=== PATIENT | male | born 1940 | race Caucasian/White ===

== ENCOUNTER 2018-07-07 16:37 | Inpatient (IN) | payer MEDICARE, BC ==
[2018-07-07 21:26] LABS: ADD MAN DIFF? NO
[2018-07-07] MEDS: SODIUM CHLORIDE 0.9% 1L BAG IV* (21:29)
[2018-07-07] MEDS: CEFEPIME 2GM/50 ML (PMX) 50 ML IVPB (21:29)
[2018-07-07] MEDS: ACETAMINOPHEN 325 MG TAB PO (21:29)
[2018-07-07 21:32] LABS: WHITE BLOOD COUNT 9.3 10^3/ul (4.8-10.8)
[2018-07-07 21:32] LABS: BASOPHILS % 0.3 % (0.0-2.0); HEMATOCRIT 45.3 % (42.0-52.0); HEMOGLOBIN 15.1 g/dl (14.0-18.0); MEAN CORPUSCULAR HGB CONC 33.3 g/dl (32.0-37.0); MEAN CORPUSCULAR VOLUME 83.9 fl (82.0-101.0); MEAN PLATELET VOLUME 9.2 fl (7.4-10.4); MONOCYTE # 0.8 10^3/ul (0.3-0.9); MONOCYTES % 9.1 % (0.0-11.0); NEUTROPHIL # 7.3 10^3/ul (1.6-7.5); PLATELET COUNT 236 10^3/UL (140-415); RED CELL DISTRIBUTION WIDTH 13.1 % (11.5-14.5)
[2018-07-07 21:48] LABS: ALANINE AMINOTRANSFERASE 33 IU/L (13-69); ALBUMIN 4.4 g/dl (3.3-4.9); ALBUMIN/GLOBULIN RATIO 1.57; ALKALINE PHOSPHATASE 82 IU/L (42-121); ANION GAP 14 (5-13); ASPARTATE AMINO TRANSFERASE 25 IU/L (15-46); BILIRUBIN,INDIRECT 0.4 mg/dl (0-1.1); BILIRUBIN,TOTAL 0.4 mg/dl (0.2-1.3); BLOOD UREA NITROGEN 25 mg/dl (7-20); CALCIUM 9.8 mg/dl (8.4-10.2); CARBON DIOXIDE 24 mmol/L (21-31); CHLORIDE 101 mmol/L (97-110); GLUCOSE 302 mg/dl (70-220); POTASSIUM 4.2 mmol/L (3.5-5.1); SODIUM 139 mmol/L (135-144); TOTAL PROTEIN 7.2 g/dl (6.1-8.1)
[2018-07-07 21:52] LABS: INR 1.15; PROTIME 14.8 Sec (11.9-14.9); PT RATIO 1.2
[2018-07-07 21:53] LABS: PARTIAL THROMBOPLASTIN TIME 29.9 Sec (23.0-35.0)
[2018-07-07 22:00] LABS: TROPONIN-I 0.022 ng/ml (0.000-0.120)
[2018-07-07 22:11] LABS: ADD UMIC NO; UR ASCORBIC ACID 20 mg/dL (NEGATIVE); UR BILIRUBIN (Dip) NEGATIVE (NEGATIVE); UR BLOOD (Dip) NEGATIVE (NEGATIVE); UR CLARITY CLEAR (CLEAR); UR COLOR YELLOW (YELLOW); UR GLUCOSE (Dip) 3+ mg/dL (NEGATIVE); UR KETONES (Dip) 1+ mg/dL (NEGATIVE); UR LEUKOCYTE ESTERASE (Dip) NEGATIVE Leu/ul (NEGATIVE); UR NITRITE (Dip) NEGATIVE (NEGATIVE); UR SPECIFIC GRAVITY (Dip) 1.025 (1.003-1.030); UR TOTAL PROTEIN (Dip) NEGATIVE (NEGATIVE); UR UROBILINOGEN (Dip) 1+ mg/dL (NEGATIVE)
[2018-07-07] MEDS: VANCOMYCIN 1 GM (PMX) 250 ML IVPB (22:54)
[2018-07-07] MEDS ORDERED: ACETAMINOPHEN 325 MG TAB PO ×2 (23:00)
[2018-07-07] MEDS ORDERED: ONDANSETRON 4 MG INJ IV ×2 (23:00)
[2018-07-08] MEDS ORDERED: DOCUSATE SODIUM 100 MG CAP PO (00:30)
[2018-07-08] MEDS ORDERED: ACETAMINOPHEN 325 MG TAB PO (01:00)
[2018-07-08] MEDS: SOD CHLORIDE 0.9% 1,000 ML IV ×3 (01:50→17:31)
[2018-07-08] MEDS: INSULIN ASPART [NOVOLOG] 3 ML PEN SC ×3 (02:00→20:59)
[2018-07-08] MEDS: ACCU-CHEK XX (02:00)
[2018-07-08] MEDS: QUETIAPINE 100 MG TAB PO ×3 (02:04→21:03)
[2018-07-08] MEDS: METOPROLOL 25 MG TAB PO ×3 (02:06→21:00)
[2018-07-08] MEDS ORDERED: GLUCOSE GEL 15 GRAM TUBE PO ×2 (02:30)
[2018-07-08] MEDS ORDERED: GLUCAGON 1 MG INJ IM (02:30)
[2018-07-08] MEDS ORDERED: GLUCOSE GEL 15 GRAM TUBE BUCCAL (02:30)
[2018-07-08] MEDS ORDERED: DEXTROSE 50% 50 ML SYRINGE IV ×2 (02:30)
[2018-07-08 05:52] LABS: ADD MAN DIFF? NO
[2018-07-08 06:03] LABS: WHITE BLOOD COUNT 7.3 10^3/ul (4.8-10.8)
[2018-07-08 06:03] LABS: BASOPHILS % 0.3 % (0.0-2.0); EOSINOPHILS % 0.1 % (0.0-7.0); HEMATOCRIT 38.9 % (42.0-52.0); LYMPHOCYTES # 1.3 10^3/ul (0.8-2.9); LYMPHOCYTES % 17.5 % (15.0-51.0); MEAN CORPUSCULAR HGB CONC 33.4 g/dl (32.0-37.0); MEAN CORPUSCULAR VOLUME 83.8 fl (82.0-101.0); MEAN PLATELET VOLUME 9.3 fl (7.4-10.4); MONOCYTE # 0.9 10^3/ul (0.3-0.9); MONOCYTES % 12.1 % (0.0-11.0); NEUTROPHILS % 69.4 % (39.0-77.0); PLATELET COUNT 207 10^3/UL (140-415); RED BLOOD COUNT 4.64 10^6/ul (4.70-6.10); RED CELL DISTRIBUTION WIDTH 13.2 % (11.5-14.5)
[2018-07-08 06:40] LABS: LACTIC ACID 0.9 mmol/L (0.5-2.0)
[2018-07-08 06:40] LABS: ANION GAP 9 (5-13)
[2018-07-08 06:42] LABS: BLOOD UREA NITROGEN 20 mg/dl (7-20); CALCIUM 8.7 mg/dl (8.4-10.2); CARBON DIOXIDE 24 mmol/L (21-31); CHLORIDE 108 mmol/L (97-110); CREATININE 0.78 mg/dl (0.61-1.24); GLUCOSE 128 mg/dl (70-220); MAGNESIUM 1.9 mg/dl (1.7-2.5); SODIUM 141 mmol/L (135-144)
[2018-07-08] MEDS: RISPERIDONE 1 MG TAB PO (08:23)
[2018-07-08] MEDS: BENZTROPINE 1 MG TAB PO (08:23)
[2018-07-08] MEDS: FINASTERIDE 5 MG TAB PO (08:23)
[2018-07-08] MEDS: glipiZIDE (XL) 5 MG TAB PO ×2 (08:23→17:35)
[2018-07-08 08:46] LABS: LACTIC ACID 1.2 mmol/L (0.5-2.0)
[2018-07-08] MEDS: CEFEPIME 2GM/50 ML (PMX) 50 ML IVPB ×2 (09:30→21:17)
[2018-07-08] MEDS: MAGNESIUM SULFATE 2 GM/50 ML 50 ML IVPB (11:20)
[2018-07-08] MEDS: SOD CHLORIDE 0.9% 500 ML IV (14:38)
[2018-07-08] MEDS: TAMSULOSIN (SR) 0.4 MG CAP PO (21:00)
[2018-07-09] MEDS: ACCU-CHEK XX (01:56)
[2018-07-09] MEDS: SOD CHLORIDE 0.9% 1,000 ML IV ×3 (03:40→17:00)
[2018-07-09 06:19] LABS: ADD MAN DIFF? NO
[2018-07-09 06:30] LABS: WHITE BLOOD COUNT 9.3 10^3/ul (4.8-10.8)
[2018-07-09 06:30] LABS: BASOPHILS % 0.3 % (0.0-2.0); HEMATOCRIT 40.3 % (42.0-52.0); HEMOGLOBIN 13.8 g/dl (14.0-18.0); LYMPHOCYTES # 1.7 10^3/ul (0.8-2.9); LYMPHOCYTES % 18.3 % (15.0-51.0); MEAN CORPUSCULAR HEMOGLOBIN 28.8 pg (29.0-33.0); MEAN CORPUSCULAR HGB CONC 34.2 g/dl (32.0-37.0); MEAN PLATELET VOLUME 9.4 fl (7.4-10.4); MONOCYTE # 0.7 10^3/ul (0.3-0.9); MONOCYTES % 7.5 % (0.0-11.0); NEUTROPHIL # 6.9 10^3/ul (1.6-7.5); NEUTROPHILS % 73.7 % (39.0-77.0); PLATELET COUNT 203 10^3/UL (140-415); RED CELL DISTRIBUTION WIDTH 13.1 % (11.5-14.5)
[2018-07-09 07:35] LABS: ANION GAP 7 (5-13); BLOOD UREA NITROGEN 14 mg/dl (7-20); CALCIUM 8.3 mg/dl (8.4-10.2); CARBON DIOXIDE 24 mmol/L (21-31); CHLORIDE 105 mmol/L (97-110); CREATININE 0.75 mg/dl (0.61-1.24); GLUCOSE 110 mg/dl (70-220); POTASSIUM 3.8 mmol/L (3.5-5.1); SODIUM 136 mmol/L (135-144)
[2018-07-09] MEDS: glipiZIDE (XL) 5 MG TAB PO ×2 (08:09→18:22)
[2018-07-09] MEDS: INSULIN ASPART [NOVOLOG] 3 ML PEN SC ×2 (08:12→20:55)
[2018-07-09] MEDS: CEFEPIME 2GM/50 ML (PMX) 50 ML IVPB ×2 (10:23→20:53)
[2018-07-09] MEDS: METOPROLOL 25 MG TAB PO ×2 (10:26→20:54)
[2018-07-09] MEDS: RISPERIDONE 1 MG TAB PO (10:26)
[2018-07-09] MEDS: FINASTERIDE 5 MG TAB PO (10:26)
[2018-07-09] MEDS: BENZTROPINE 1 MG TAB PO (10:26)
[2018-07-09] MEDS: QUETIAPINE 100 MG TAB PO ×2 (10:26→20:53)
[2018-07-09] MEDS: TAMSULOSIN (SR) 0.4 MG CAP PO (20:53)
[2018-07-10] MEDS: ACCU-CHEK XX (01:52)
[2018-07-10] MEDS: ENOXAPARIN 40 MG/0.4 ML SYG SC (08:30)
[2018-07-10] MEDS: CYCLOSPORINE 0.05% OPH DROPERETTE BOTH EYES (08:31)
[2018-07-10] MEDS: QUETIAPINE 100 MG TAB PO ×2 (08:32→21:13)
[2018-07-10] MEDS: glipiZIDE (XL) 5 MG TAB PO ×2 (08:32→17:40)
[2018-07-10] MEDS: BENZTROPINE 1 MG TAB PO (08:33)
[2018-07-10] MEDS: FINASTERIDE 5 MG TAB PO (08:33)
[2018-07-10] MEDS: METOPROLOL 25 MG TAB PO ×2 (08:33→21:12)
[2018-07-10] MEDS: RISPERIDONE 1 MG TAB PO (08:33)
[2018-07-10] MEDS: CEFEPIME 2GM/50 ML (PMX) 50 ML IVPB ×2 (08:36→21:12)
[2018-07-10] MEDS: INSULIN ASPART [NOVOLOG] 3 ML PEN SC ×2 (08:46→21:00)
[2018-07-10] MEDS: TAMSULOSIN (SR) 0.4 MG CAP PO (21:13)
[2018-07-10] MEDS: SOD CHLORIDE 0.9% 100 ML (21:59)
[2018-07-10] MEDS: IOHEXOL 300MG/ML 150 ML BTL (22:00)
[2018-07-10] MEDS: LEVALBUTEROL (NEB) 0.63 MG/3 ML AMP HHN (22:47)
[2018-07-11] MEDS ORDERED: LEVALBUTEROL (NEB) 0.63 MG/3 ML AMP HHN
[2018-07-11] MEDS: ACCU-CHEK XX (02:00)
[2018-07-11 05:38] LABS: ADD MAN DIFF? NO
[2018-07-11 05:48] LABS: WHITE BLOOD COUNT 5.9 10^3/ul (4.8-10.8)
[2018-07-11 05:48] LABS: BASOPHILS % 0.3 % (0.0-2.0); EOSINOPHILS % 0.5 % (0.0-7.0); HEMATOCRIT 41.5 % (42.0-52.0); HEMOGLOBIN 13.8 g/dl (14.0-18.0); LYMPHOCYTES # 1.6 10^3/ul (0.8-2.9); LYMPHOCYTES % 27.1 % (15.0-51.0); MEAN CORPUSCULAR HEMOGLOBIN 27.6 pg (29.0-33.0); MEAN CORPUSCULAR HGB CONC 33.3 g/dl (32.0-37.0); MEAN PLATELET VOLUME 9.4 fl (7.4-10.4); MONOCYTE # 0.6 10^3/ul (0.3-0.9); MONOCYTES % 10.9 % (0.0-11.0); NEUTROPHIL # 3.6 10^3/ul (1.6-7.5); NEUTROPHILS % 60.7 % (39.0-77.0); PLATELET COUNT 241 10^3/UL (140-415)
[2018-07-11 07:39] LABS: ALANINE AMINOTRANSFERASE 22 IU/L (13-69); ALBUMIN 3.6 g/dl (3.3-4.9); ALBUMIN/GLOBULIN RATIO 1.24; ALKALINE PHOSPHATASE 63 IU/L (42-121); ANION GAP 10 (5-13); ASPARTATE AMINO TRANSFERASE 40 IU/L (15-46); BILIRUBIN,INDIRECT 0.4 mg/dl (0-1.1); BILIRUBIN,TOTAL 0.4 mg/dl (0.2-1.3); BLOOD UREA NITROGEN 17 mg/dl (7-20); CARBON DIOXIDE 25 mmol/L (21-31); CHLORIDE 104 mmol/L (97-110); CREATININE 0.76 mg/dl (0.61-1.24); GLUCOSE 107 mg/dl (70-220); SODIUM 139 mmol/L (135-144); TOTAL PROTEIN 6.5 g/dl (6.1-8.1)
[2018-07-11 07:40] LABS: ERYTHROCYTE SEDIMENTATION RATE 20 mm/Hr (0-20)
[2018-07-11] MEDS: LEVALBUTEROL (NEB) 0.63 MG/3 ML AMP HHN ×2 (08:00→16:00)
[2018-07-11] MEDS: glipiZIDE (XL) 5 MG TAB PO ×2 (08:22→18:01)
[2018-07-11] MEDS: INSULIN ASPART [NOVOLOG] 3 ML PEN SC ×2 (08:22→21:04)
[2018-07-11] MEDS: RISPERIDONE 1 MG TAB PO (09:13)
[2018-07-11] MEDS: BENZTROPINE 1 MG TAB PO (09:13)
[2018-07-11] MEDS: CEFEPIME 2GM/50 ML (PMX) 50 ML IVPB ×2 (09:13→20:56)
[2018-07-11] MEDS: METOPROLOL 25 MG TAB PO ×2 (09:15→20:58)
[2018-07-11] MEDS: FINASTERIDE 5 MG TAB PO (09:15)
[2018-07-11] MEDS: QUETIAPINE 100 MG TAB PO ×2 (09:15→20:56)
[2018-07-11] MEDS: ENOXAPARIN 40 MG/0.4 ML SYG SC (09:16)
[2018-07-11] MEDS: CYCLOSPORINE 0.05% OPH DROPERETTE BOTH EYES (11:05)
[2018-07-11] MEDS: TAMSULOSIN (SR) 0.4 MG CAP PO (20:56)
[2018-07-12] MEDS: LEVALBUTEROL (NEB) 0.63 MG/3 ML AMP HHN ×4 (00:23→23:58)
[2018-07-12] MEDS: ACCU-CHEK XX (02:00)
[2018-07-12 06:06] LABS: ADD MAN DIFF? NO
[2018-07-12 06:13] LABS: WHITE BLOOD COUNT 7.9 10^3/ul (4.8-10.8)
[2018-07-12 06:13] LABS: BASOPHILS % 0.1 % (0.0-2.0); EOSINOPHILS % 0.1 % (0.0-7.0); HEMATOCRIT 41.3 % (42.0-52.0); HEMOGLOBIN 13.9 g/dl (14.0-18.0); LYMPHOCYTES % 25.7 % (15.0-51.0); MEAN CORPUSCULAR HEMOGLOBIN 27.3 pg (29.0-33.0); MEAN CORPUSCULAR HGB CONC 33.7 g/dl (32.0-37.0); MEAN CORPUSCULAR VOLUME 81.1 fl (82.0-101.0); MEAN PLATELET VOLUME 8.9 fl (7.4-10.4); MONOCYTE # 0.8 10^3/ul (0.3-0.9); MONOCYTES % 9.8 % (0.0-11.0); NEUTROPHIL # 5.1 10^3/ul (1.6-7.5); NEUTROPHILS % 64.2 % (39.0-77.0); PLATELET COUNT 230 10^3/UL (140-415); RED BLOOD COUNT 5.09 10^6/ul (4.70-6.10)
[2018-07-12 06:43] LABS: ANION GAP 10 (5-13); BLOOD UREA NITROGEN 16 mg/dl (7-20); CALCIUM 8.9 mg/dl (8.4-10.2); CARBON DIOXIDE 25 mmol/L (21-31); CHLORIDE 102 mmol/L (97-110); CREATININE 0.72 mg/dl (0.61-1.24); GLUCOSE 135 mg/dl (70-220); POTASSIUM 3.7 mmol/L (3.5-5.1); SODIUM 137 mmol/L (135-144)
[2018-07-12] MEDS: BENZTROPINE 1 MG TAB PO (08:22)
[2018-07-12] MEDS: RISPERIDONE 1 MG TAB PO (08:22)
[2018-07-12] MEDS: QUETIAPINE 100 MG TAB PO ×2 (08:22→21:52)
[2018-07-12] MEDS: FINASTERIDE 5 MG TAB PO (08:22)
[2018-07-12] MEDS: CEFEPIME 2GM/50 ML (PMX) 50 ML IVPB ×2 (08:23→21:52)
[2018-07-12] MEDS: ENOXAPARIN 40 MG/0.4 ML SYG SC (08:24)
[2018-07-12] MEDS: METOPROLOL 25 MG TAB PO ×2 (08:25→21:53)
[2018-07-12] MEDS: CYCLOSPORINE 0.05% OPH DROPERETTE BOTH EYES (08:29)
[2018-07-12] MEDS: INSULIN ASPART [NOVOLOG] 3 ML PEN SC ×2 (08:29→21:00)
[2018-07-12] MEDS: glipiZIDE (XL) 5 MG TAB PO ×2 (08:29→18:06)
[2018-07-12] MEDS: TAMSULOSIN (SR) 0.4 MG CAP PO (21:52)
[2018-07-13] MEDS: ACCU-CHEK XX (02:00)
[2018-07-13] MEDS: POLYETHYLENE GLYCOL 17 GM PACKET PO (06:12)
[2018-07-13 06:17] LABS: WHITE BLOOD COUNT 6.6 10^3/ul (4.8-10.8)
[2018-07-13 06:17] LABS: HEMATOCRIT 40.7 % (42.0-52.0); HEMOGLOBIN 13.7 g/dl (14.0-18.0); MEAN CORPUSCULAR HEMOGLOBIN 27.6 pg (29.0-33.0); MEAN CORPUSCULAR HGB CONC 33.7 g/dl (32.0-37.0); MEAN CORPUSCULAR VOLUME 81.9 fl (82.0-101.0); POSITIVE DIFF @See below; RED BLOOD COUNT 4.97 10^6/ul (4.70-6.10); RED CELL DISTRIBUTION WIDTH 13.1 % (11.5-14.5)
[2018-07-13 06:23] LABS: ADD MAN DIFF? YES; MEAN PLATELET VOLUME 10.8 fl (7.4-10.4); PLATELET COUNT 169 10^3/UL (140-415)
[2018-07-13 06:42] LABS: ALANINE AMINOTRANSFERASE 22 IU/L (13-69); ALBUMIN 3.5 g/dl (3.3-4.9); ALBUMIN/GLOBULIN RATIO 1.06; ALKALINE PHOSPHATASE 51 IU/L (42-121); ANION GAP 8 (5-13); ASPARTATE AMINO TRANSFERASE 50 IU/L (15-46); BILIRUBIN,INDIRECT 0.3 mg/dl (0-1.1); BILIRUBIN,TOTAL 0.3 mg/dl (0.2-1.3); BLOOD UREA NITROGEN 20 mg/dl (7-20); CALCIUM 8.5 mg/dl (8.4-10.2); CARBON DIOXIDE 24 mmol/L (21-31); CHLORIDE 105 mmol/L (97-110); CREATININE 0.79 mg/dl (0.61-1.24); GLUCOSE 95 mg/dl (70-220); MAGNESIUM 2.2 mg/dl (1.7-2.5); POTASSIUM 4.5 mmol/L (3.5-5.1); SODIUM 137 mmol/L (135-144); TOTAL PROTEIN 6.8 g/dl (6.1-8.1)
[2018-07-13] MEDS: LEVALBUTEROL (NEB) 0.63 MG/3 ML AMP HHN ×3 (09:14→23:49)
[2018-07-13] MEDS: FINASTERIDE 5 MG TAB PO (09:19)
[2018-07-13] MEDS: RISPERIDONE 1 MG TAB PO (09:20)
[2018-07-13] MEDS: glipiZIDE (XL) 5 MG TAB PO ×2 (09:20→17:25)
[2018-07-13] MEDS: QUETIAPINE 100 MG TAB PO ×2 (09:20→20:47)
[2018-07-13] MEDS: BENZTROPINE 1 MG TAB PO (09:21)
[2018-07-13] MEDS: CYCLOSPORINE 0.05% OPH DROPERETTE BOTH EYES (09:23)
[2018-07-13] MEDS: METOPROLOL 25 MG TAB PO ×2 (09:23→20:48)
[2018-07-13] MEDS: ENOXAPARIN 40 MG/0.4 ML SYG SC (09:25)
[2018-07-13] MEDS: CEFEPIME 2GM/50 ML (PMX) 50 ML IVPB ×2 (09:25→21:00)
[2018-07-13] MEDS: INSULIN ASPART [NOVOLOG] 3 ML PEN SC ×2 (09:26→20:47)
[2018-07-13 16:46] LABS: AADO2 Arterial 85.8 mmHg (7.0-24.0); Allen Test ACCEPTAB; Arterial Base Excess 2.7 mmol/L (-3.0-3); Arterial Blood Gas Oxygen Sat 97.2 mmHG (95.0-100.0); Arterial COHb 0.3 % (0.0-3.0); Arterial Fraction of Oxyhgb 96.6 % (93.0-99.0); Arterial HCO3 25.6 mmol/L (22.0-26.0); Arterial MetHb 0.3 % (0.0-1.5); MODE NASAL CANNULA; Site Left Radial
[2018-07-13] MEDS: TAMSULOSIN (SR) 0.4 MG CAP PO (20:47)
[2018-07-14] MEDS: ACCU-CHEK XX (01:54)
[2018-07-14 06:18] LABS: ADD MAN DIFF? NO
[2018-07-14 06:31] LABS: BASOPHILS % 0.3 % (0.0-2.0); EOSINOPHILS # 0.1 10^3/ul (0.0-0.5); EOSINOPHILS % 0.9 % (0.0-7.0); HEMATOCRIT 39.6 % (42.0-52.0); HEMOGLOBIN 13.2 g/dl (14.0-18.0); LYMPHOCYTES # 1.9 10^3/ul (0.8-2.9); LYMPHOCYTES % 28.6 % (15.0-51.0); MEAN CORPUSCULAR HEMOGLOBIN 27.7 pg (29.0-33.0); MEAN CORPUSCULAR HGB CONC 33.3 g/dl (32.0-37.0); MEAN PLATELET VOLUME 9.2 fl (7.4-10.4); MONOCYTE # 0.7 10^3/ul (0.3-0.9); MONOCYTES % 11.1 % (0.0-11.0); NEUTROPHIL # 3.8 10^3/ul (1.6-7.5); NEUTROPHILS % 57.9 % (39.0-77.0); PLATELET COUNT 275 10^3/UL (140-415); RED BLOOD COUNT 4.77 10^6/ul (4.70-6.10); RED CELL DISTRIBUTION WIDTH 12.9 % (11.5-14.5)
[2018-07-14 06:31] LABS: WHITE BLOOD COUNT 6.5 10^3/ul (4.8-10.8)
[2018-07-14 06:51] LABS: ALANINE AMINOTRANSFERASE 30 IU/L (13-69); ALBUMIN 3.4 g/dl (3.3-4.9); ALBUMIN/GLOBULIN RATIO 1.06; ALKALINE PHOSPHATASE 62 IU/L (42-121); ANION GAP 11 (5-13); ASPARTATE AMINO TRANSFERASE 38 IU/L (15-46); BILIRUBIN,INDIRECT 0.3 mg/dl (0-1.1); BILIRUBIN,TOTAL 0.3 mg/dl (0.2-1.3); BLOOD UREA NITROGEN 19 mg/dl (7-20); CALCIUM 8.9 mg/dl (8.4-10.2); CARBON DIOXIDE 25 mmol/L (21-31); CHLORIDE 103 mmol/L (97-110); CREATININE 0.66 mg/dl (0.61-1.24); GLUCOSE 114 mg/dl (70-220); MAGNESIUM 2.1 mg/dl (1.7-2.5); POTASSIUM 3.9 mmol/L (3.5-5.1); SODIUM 139 mmol/L (135-144); TOTAL PROTEIN 6.6 g/dl (6.1-8.1)
[2018-07-14 07:29] LABS: GAMMA GLUTAMYL TRANSPEPTIDASE 16 IU/L (0-50)
[2018-07-14] MEDS: ENOXAPARIN 40 MG/0.4 ML SYG SC (08:44)
[2018-07-14] MEDS: INSULIN ASPART [NOVOLOG] 3 ML PEN SC ×2 (08:45→20:57)
[2018-07-14] MEDS: FINASTERIDE 5 MG TAB PO (08:45)
[2018-07-14] MEDS: CYCLOSPORINE 0.05% OPH DROPERETTE BOTH EYES (08:45)
[2018-07-14] MEDS: glipiZIDE (XL) 5 MG TAB PO ×2 (08:45→17:15)
[2018-07-14] MEDS: METOPROLOL 25 MG TAB PO ×2 (08:46→20:58)
[2018-07-14] MEDS: QUETIAPINE 100 MG TAB PO ×2 (08:46→20:58)
[2018-07-14] MEDS: RISPERIDONE 1 MG TAB PO ×2 (08:46→20:58)
[2018-07-14] MEDS: CEFEPIME 2GM/50 ML (PMX) 50 ML IVPB ×2 (08:47→20:57)
[2018-07-14] MEDS: LEVALBUTEROL (NEB) 0.63 MG/3 ML AMP HHN ×2 (09:51→15:54)
[2018-07-14] MEDS: TAMSULOSIN (SR) 0.4 MG CAP PO (20:58)
[2018-07-15] MEDS: LEVALBUTEROL (NEB) 0.63 MG/3 ML AMP HHN ×4 (00:46→23:10)
[2018-07-15] MEDS: ACCU-CHEK XX (01:34)
[2018-07-15 05:51] LABS: ADD MAN DIFF? NO
[2018-07-15 05:55] LABS: BASOPHILS % 0.6 % (0.0-2.0); EOSINOPHILS # 0.1 10^3/ul (0.0-0.5); HEMATOCRIT 40.9 % (42.0-52.0); HEMOGLOBIN 13.6 g/dl (14.0-18.0); LYMPHOCYTES # 1.9 10^3/ul (0.8-2.9); LYMPHOCYTES % 28.2 % (15.0-51.0); MEAN CORPUSCULAR HEMOGLOBIN 27.5 pg (29.0-33.0); MEAN CORPUSCULAR HGB CONC 33.3 g/dl (32.0-37.0); MEAN CORPUSCULAR VOLUME 82.8 fl (82.0-101.0); MONOCYTE # 0.7 10^3/ul (0.3-0.9); MONOCYTES % 10.1 % (0.0-11.0); NEUTROPHIL # 3.8 10^3/ul (1.6-7.5); PLATELET COUNT 303 10^3/UL (140-415); RED BLOOD COUNT 4.94 10^6/ul (4.70-6.10)
[2018-07-15 05:55] LABS: WHITE BLOOD COUNT 6.6 10^3/ul (4.8-10.8)
[2018-07-15 06:25] LABS: ANION GAP 8 (5-13); BLOOD UREA NITROGEN 21 mg/dl (7-20); CALCIUM 9.3 mg/dl (8.4-10.2); CARBON DIOXIDE 26 mmol/L (21-31); CHLORIDE 108 mmol/L (97-110); GLUCOSE 95 mg/dl (70-220); MAGNESIUM 2.3 mg/dl (1.7-2.5); POTASSIUM 4.2 mmol/L (3.5-5.1); SODIUM 142 mmol/L (135-144)
[2018-07-15] MEDS: INSULIN ASPART [NOVOLOG] 3 ML PEN SC ×2 (08:09→20:44)
[2018-07-15] MEDS: glipiZIDE (XL) 5 MG TAB PO ×2 (08:10→17:37)
[2018-07-15] MEDS: CYCLOSPORINE 0.05% OPH DROPERETTE BOTH EYES (09:09)
[2018-07-15] MEDS: METOPROLOL 25 MG TAB PO ×2 (09:09→20:43)
[2018-07-15] MEDS: CEFEPIME 2GM/50 ML (PMX) 50 ML IVPB ×2 (09:09→21:14)
[2018-07-15] MEDS: FINASTERIDE 5 MG TAB PO (09:10)
[2018-07-15] MEDS: ENOXAPARIN 40 MG/0.4 ML SYG SC (09:10)
[2018-07-15] MEDS: TAMSULOSIN (SR) 0.4 MG CAP PO (20:42)
[2018-07-15] MEDS: QUETIAPINE 100 MG TAB PO (20:42)
[2018-07-15] MEDS: RISPERIDONE 1 MG TAB PO (20:43)
[2018-07-16] MEDS: ACCU-CHEK XX (02:00)
[2018-07-16 06:51] LABS: ALANINE AMINOTRANSFERASE 21 IU/L (13-69); ALBUMIN 3.5 g/dl (3.3-4.9); ALBUMIN/GLOBULIN RATIO 1.06; ALKALINE PHOSPHATASE 65 IU/L (42-121); ANION GAP 8 (5-13); ASPARTATE AMINO TRANSFERASE 32 IU/L (15-46); BILIRUBIN,INDIRECT 0.3 mg/dl (0-1.1); BILIRUBIN,TOTAL 0.3 mg/dl (0.2-1.3); BLOOD UREA NITROGEN 22 mg/dl (7-20); CALCIUM 9.2 mg/dl (8.4-10.2); CARBON DIOXIDE 26 mmol/L (21-31); CHLORIDE 106 mmol/L (97-110); CREATININE 0.73 mg/dl (0.61-1.24); GLUCOSE 96 mg/dl (70-220); POTASSIUM 3.8 mmol/L (3.5-5.1); SODIUM 140 mmol/L (135-144); TOTAL PROTEIN 6.8 g/dl (6.1-8.1)
[2018-07-16] MEDS: METOPROLOL 25 MG TAB PO (08:44)
[2018-07-16] MEDS: CYCLOSPORINE 0.05% OPH DROPERETTE BOTH EYES (08:44)
[2018-07-16] MEDS: glipiZIDE (XL) 5 MG TAB PO (08:44)
[2018-07-16] MEDS: FINASTERIDE 5 MG TAB PO (08:44)
[2018-07-16] MEDS: BENZTROPINE 1 MG TAB PO ×2 (08:44→09:00)
[2018-07-16] MEDS: INSULIN ASPART [NOVOLOG] 3 ML PEN SC (08:45)
[2018-07-16] MEDS: ENOXAPARIN 40 MG/0.4 ML SYG SC (08:45)
[2018-07-16] MEDS: LEVALBUTEROL (NEB) 0.63 MG/3 ML AMP HHN ×2 (09:09→15:58)
[2018-07-16] MEDS: CEFEPIME 2GM/50 ML (PMX) 50 ML IVPB (11:20)
== END 2018-07-16 16:25 | DRG 871 ==
LOC: PP2 22:41 → E/R 16:37
DX: A41.9 Sepsis, unspecified organism (principal); J18.9 Pneumonia, unspecified organism; F20.9 Schizophrenia, unspecified; E11.65 Type 2 diabetes mellitus with hyperglycemia; E78.5 Hyperlipidemia, unspecified; I10 Essential (primary) hypertension; K59.00 Constipation, unspecified
CPT/HCPCS: 36415; 36600; 71045; 71270; 80048; 80053; 81003; 82803; 82962; 82977; 83605; 83735; 84484; 85025; 85610; 85651; 85730; 87040; 87086; 87400; 93005; 94640; 94664; 96374; 97116; 97161; 97167; 97530; 97535; 99291-25; G0378

== ENCOUNTER 2018-08-12 00:20 | Emergency (ER) | payer MEDICARE, BC ==
[2018-08-12 03:47] LABS: ADD MAN DIFF? NO
[2018-08-12 04:04] LABS: WHITE BLOOD COUNT 8.6 10^3/ul (4.8-10.8)
[2018-08-12 04:04] LABS: BASOPHILS % 0.5 % (0.0-2.0); EOSINOPHILS # 0.2 10^3/ul (0.0-0.5); EOSINOPHILS % 2.7 % (0.0-7.0); HEMATOCRIT 40.5 % (42.0-52.0); HEMOGLOBIN 13.3 g/dl (14.0-18.0); LYMPHOCYTES # 2.7 10^3/ul (0.8-2.9); LYMPHOCYTES % 31.5 % (15.0-51.0); MEAN CORPUSCULAR HEMOGLOBIN 27.8 pg (29.0-33.0); MEAN CORPUSCULAR HGB CONC 32.8 g/dl (32.0-37.0); MEAN CORPUSCULAR VOLUME 84.6 fl (82.0-101.0); MEAN PLATELET VOLUME 9.3 fl (7.4-10.4); MONOCYTE # 0.6 10^3/ul (0.3-0.9); MONOCYTES % 7.3 % (0.0-11.0); NEUTROPHIL # 4.9 10^3/ul (1.6-7.5); NEUTROPHILS % 57.5 % (39.0-77.0); PLATELET COUNT 230 10^3/UL (140-415); RED BLOOD COUNT 4.79 10^6/ul (4.70-6.10); RED CELL DISTRIBUTION WIDTH 14.1 % (11.5-14.5)
[2018-08-12 04:08] LABS: URINE BLOOD (Dip) POC Negative (NEGATIVE); URINE GLUCOSE (Dip) POC Negative (NEGATIVE); URINE KETONES (Dip) POC 1+ (NEGATIVE); URINE LEUKOCYTE EST (Dip) POC Trace (NEGATIVE); URINE NITRITE (Dip) POC Negative (NEGATIVE); URINE TOTAL PROTEIN POC 1+ (NEGATIVE)
[2018-08-12 04:15] LABS: ALANINE AMINOTRANSFERASE 29 IU/L (13-69); ALBUMIN 4.2 g/dl (3.3-4.9); ALKALINE PHOSPHATASE 88 IU/L (42-121); ANION GAP 13 (5-13); ASPARTATE AMINO TRANSFERASE 55 IU/L (15-46); BILIRUBIN,INDIRECT 0.4 mg/dl (0-1.1); BILIRUBIN,TOTAL 0.4 mg/dl (0.2-1.3); BLOOD UREA NITROGEN 21 mg/dl (7-20); CALCIUM 9.3 mg/dl (8.4-10.2); CARBON DIOXIDE 30 mmol/L (21-31); CHLORIDE 102 mmol/L (97-110); CREATININE 0.98 mg/dl (0.61-1.24); GLUCOSE 144 mg/dl (70-220); LIPASE 37 U/L (23-300); POTASSIUM 4.2 mmol/L (3.5-5.1); SODIUM 145 mmol/L (135-144); TOTAL PROTEIN 7.2 g/dl (6.1-8.1)
== END 2018-08-12 06:20 | disposition home or self-care (01) ==
LOC: E/R 00:20
DX: D64.9 Anemia, unspecified (principal)
CPT/HCPCS: 36415; 80053; 81003; 83690; 85025; 99283